=== PATIENT | female | born 1980 | race Native Hawaiian/Other Pacific Islander ===

== ENCOUNTER 2016-11-14 15:36 | Outpatient (CLI) | payer BC ==
[2016-11-14 16:33] LABS: PLATELET COUNT 378 K/uL (152-353)
[2016-11-14 16:38] LABS: POTASSIUM 3.7 mmol/L (3.6-5.2); SODIUM 138 mmol/L (136-145)
== END 2016-11-14 19:25 | disposition home or self-care (01) ==
LOC: LABW 15:36
PROVIDERS: Obstetrics & Gynecology Gynecologic Oncology
DX: N85.02 Endometrial intraepithelial neoplasia [EIN] (principal)
CPT/HCPCS: 36415; 80048; 85027

== ENCOUNTER 2017-01-24 07:55 | Outpatient (CLI) | payer BC | END 2017-01-24 19:28 | disposition home or self-care (01) | LOC: CT 07:55 | DX: C54.1 Malignant neoplasm of endometrium (principal) | CPT/HCPCS: 36415; 82565; 84520; Q9963 ==

== ENCOUNTER 2018-10-04 08:03 | Emergency (ER) | payer BC ==
[~2018-10-04] VITALS: Ht 160 cm; Wt 106.6 kg
[2018-10-04 08:47] LABS: PLATELET COUNT 445 K/uL (152-353)
[2018-10-04 08:50] LABS: POTASSIUM 3.9 mmol/L (3.6-5.2); SODIUM 141 mmol/L (136-145)
[2018-10-04 08:59] LABS: PARTIAL THROMBOPLASTIN TIME 24.1 SECONDS (24.5-33.6)
[2018-10-04 14:15] VITALS: BP 132/80; TEMP 98
== END 2018-10-04 14:15 | disposition home or self-care (01) ==
LOC: ED 08:03
PROVIDERS: Emergency Medicine
DX: R06.00 Dyspnea, unspecified (principal)
CPT/HCPCS: 80053; 82553; 83735; 84443; 84484; 85027; 85379; 85610; 85730; 87502; 93005; 99283; Q9963

== ENCOUNTER 2019-06-18 14:04 | Outpatient (CLI) | payer BC | END 2019-06-18 19:04 | disposition home or self-care (01) | LOC: RAD 14:04 | DX: M54.2 Cervicalgia (principal); M54.5 Low back pain ==

== ENCOUNTER 2019-09-10 09:35 | Outpatient (CLI) | payer BC | END 2019-09-10 19:43 | disposition home or self-care (01) | LOC: MRI 09:35 | DX: M54.16 Radiculopathy, lumbar region (principal) ==

== ENCOUNTER 2022-12-14 15:00 | Outpatient (CLI) | payer BC | END 2022-12-14 19:38 | disposition home or self-care (01) | LOC: MAMMO 15:00 | PROVIDERS: ATTEND Obstetrics & Gynecology | DX: N63.14 Unspecified lump in the right breast, lower inner quadrant (principal) | CPT/HCPCS: G0279 ==